=== PATIENT | female | born 1990 | race American Indian/Alaskan Native ===

== ENCOUNTER 2016-07-31 09:50 | Outpatient (CLI) | payer MEDICAID ==
[2016-07-31] MEDS ORDERED: LACTATED RINGERS 500 ML IV ONE (10:03)
[2016-07-31 11:01] VITALS: BP 106/68
[2016-07-31 11:58] LABS: Mucus,Urine 2+ /HPF
[2016-07-31 12:35] LABS: Bilirubin,Urine NEG (Negative); Blood,Urine NEG (Negative); Ketones,Urine NEG (Negative); Leukocyte Esterase,Urine TR (Negative); Nitrite,Urine NEG (Negative); Protein,Urine <15 mg/dL mg/dL (Negative); Urobilinogen,Urine < 2.0 mg/dL (<2.0)
== END 2016-07-31 14:10 | disposition home or self-care (01) ==
LOC: TRG 09:50
PROVIDERS: ATTEND Obstetrics & Gynecology
DX: O77.9 Labor and delivery complicated by fetal stress, unspecified (principal); O47.9 False labor, unspecified; Z3A.00 Weeks of gestation of pregnancy not specified
CPT/HCPCS: 59025; 81001

== ENCOUNTER 2016-09-07 09:38 | Emergency (ER) | payer MEDICAID ==
[2016-09-07 10:49] LABS: Basophils % (Auto) 0.6 % (0.0-1.8); Eosinophils % (Auto) 3.9 % (0.0-4.3); Hematocrit 34.6 % (30.3-42.9); Hemoglobin 11.6 gm/dl (10.1-14.3); Mean Corpuscular HGB Conc 34 % (30-34); Mean Corpuscular Hemoglobin 29 pg (28-32); Mean Corpuscular Volume 85 fl (79-97); Platelet Count 161 K/mm3 (140-440); Red Blood Count 4.05 M/mm3 (3.65-5.03); Red Cell Distribution Width 14.2 % (13.2-15.2); White Blood Count 8.6 K/mm3 (4.5-11.0)
[2016-09-07 11:04] LABS: Anion Gap 13 mmol/L; Blood Urea Nitrogen 4 mg/dL (7-17); Calcium 8.6 mg/dL (8.4-10.2); Carbon Dioxide 24 mmol/L (22-30); Chloride 100.8 mmol/L (98-107); Glucose 66 mg/dL (65-100); Potassium 3.7 mmol/L (3.6-5.0); Sodium 134 mmol/L (137-145)
[2016-09-07 11:07] LABS: Alanine Aminotransferase 8 units/L (7-56); Albumin 3.2 g/dL (3.9-5); Albumin/Globulin Ratio 1.2 %; Alkaline Phosphatase 107 units/L (35-129); Bilirubin,Total 0.2 mg/dL (0.1-1.2); Total Protein 5.9 g/dL (6.3-8.2)
[2016-09-07 11:18] VITALS: BP 95/62
--- NOTE | 2016-09-07 11:25 | Emergency Department Report ---
ED General Adult HPI - General Chief complaint: Dizziness Stated complaint: DIZZINESS Time Seen by Provider: 09/07/16 10:32 Source: patient, EMS Mode of arrival: Stretcher Limitations: No Limitations - History of Present Illness Initial comments: She states that she was driving a golf cart at work. She began to feel weak. She exited the golf cart and felt as if she was going to pass out. However, she did not fall. She had no dyspnea chest pain or abdominal pain. She has felt normal movement. She states that she has had no problems with this . Patient is 4. She's had 3 voluntary interruptions of . Her liveborn child was 5 years ago who was delivered at emergency C section for distress and failure to progress. -: Gradual Improves with: none Worsens with: none Associated Symptoms: denies other symptoms - Related Data Allergies Allergy/AdvReac Type Severity Reaction Status Date / Time Latex, Natural Rubber Allergy Unknown Verified 03/16/16 17:32 ED Review of Systems ROS: Stated complaint: DIZZINESS Other details as noted in HPI Constitutional: denies: chills, fever Eyes: denies: eye pain, eye discharge, vision change ENT: denies: ear pain, throat pain Respiratory: denies: cough, shortness of breath, wheezing Cardiovascular: denies: chest pain, palpitations Endocrine: no symptoms reported Gastrointestinal: denies: abdominal pain, nausea, diarrhea Genitourinary: denies: urgency, dysuria, discharge Musculoskeletal: denies: back pain, joint swelling, arthralgia Skin: denies: rash, lesions Neurological: denies: headache, weakness, paresthesias Psychiatric: denies: anxiety, depression Hematological/Lymphatic: denies: easy bleeding, easy bruising ED Past Medical Hx - Past Medical History Hx Hypertension: No Hx Diabetes: No Hx Deep Vein Thrombosis: No Hx Renal Disease: No Hx Sickle Cell Disease: No Hx Seizures: No Hx Asthma: Yes Hx HIV: No Additional medical history: 35 weeks - Surgical History Past Surgical History?: Yes Additional Surgical History: - Social History Smoking Status: Never Smoker Substance Use Type: None ED Physical Exam - General Limitations: No Limitations General appearance: alert, in no apparent distress - Head Head exam: Present: atraumatic, normocephalic - Eye Eye exam: Present: normal appearance. Absent: scleral icterus - ENT ENT exam: Present: mucous membranes moist - Neck Neck exam: Present: normal inspection - Respiratory Respiratory exam: Present: normal lung sounds bilaterally. Absent: respiratory distress - Cardiovascular Cardiovascular Exam: Present: regular rate, normal rhythm. Absent: systolic murmur, diastolic murmur, rubs, gallop - GI/Abdominal GI/Abdominal exam: Present: soft, normal bowel sounds, organomegaly (is consistent with dates heart tones were in the 130s.). Absent: distended, tenderness, guarding, rebound - Extremities Exam Extremities exam: Present: normal inspection - Back Exam Back exam: Present: normal inspection - Neurological Exam Neurological exam: Present: alert, oriented X3, CN II-XII intact. Absent: motor sensory deficit - Psychiatric Psychiatric exam: Present: normal affect, normal mood - Skin Skin exam: Present: warm, dry, intact, normal color. Absent: rash ED Course Vital Signs 09/07/16 09:41 Temperature 98.4 F Pulse Rate 72 Respiratory 20 Rate Blood Pressure 118/78 O2 Sat by Pulse 99 Oximetry ED Medical Decision Making - Lab Data Result diagrams: 09/07/16 10:38 09/07/16 10:38 Laboratory Results - last 24 hr 09/07/16 09/07/16 09/07/16 10:38 10:38 10:38 WBC 8.6 RBC 4.05 Hgb 11.6 Hct 34.6 MCV 85 MCH 29 MCHC 34 RDW 14.2 Plt Count 161 Lymph % (Auto) 21.0 [place] % (Auto) 7.9 H Eos % (Auto) 3.9 Baso % (Auto) 0.6 Lymph # 1.8 [place] # 0.7 Eos # 0.3 Baso # 0.1 Seg Neutrophils % 66.6 Seg Neutrophils # 5.7 Sodium 134 L Potassium 3.7 Chloride 100.8 Carbon Dioxide 24 Anion Gap 13 BUN 4 L Creatinine 0.4 L Estimated GFR > 60 BUN/Creatinine Ratio 10.00 Glucose 66 Calcium 8.6 Total Bilirubin 0.2 AST 12 ALT 8 Alkaline Phosphatase 107 Total Protein 5.9 L Albumin 3.2 L Albumin/Globulin Ratio 1.2 - EKG Data -: EKG Interpreted by Me EKG shows normal: sinus rhythm, axis, intervals, QRS complexes, ST-T waves Rate: normal - EKG Data Interpretation: normal EKG Critical care attestation.: If time is entered above; I have spent that time in minutes in the direct care of this critically ill patient, excluding procedure time. ED Disposition Clinical Impression: Pre-syncope, 35 weeks gestation of Disposition: DISCHARGED TO HOME OR SELFCARE Is pt being admited?: No Does the pt Need Aspirin: No Condition: Stable Instructions: Syncope (ED), (ED) Additional Instructions: Go to L&D now to complete your evaluation. Referrals: PRIMARY CARE, [Primary Care Provider] - 3-5 Days Time of Disposition: 11:38
[2016-09-07 13:05] LABS: Urine Drugs of Abuse Note Disclamer
[2016-09-07 13:14] LABS: Bacteria,Urine 1+ /HPF (Negative); Bilirubin,Urine NEG (Negative); Blood,Urine NEG (Negative); Ketones,Urine NEG (Negative); Leukocyte Esterase,Urine NEG (Negative); Nitrite,Urine NEG (Negative); Protein,Urine <15 mg/dL mg/dL (Negative); Urobilinogen,Urine < 2.0 mg/dL (<2.0)
== END 2016-09-07 12:18 | disposition home or self-care (01) ==
LOC: ED 09:38
DX: O26.893 Other specified pregnancy related conditions, third trimester (principal); R55 Syncope and collapse; J45.909 Unspecified asthma, uncomplicated; Z3A.35 35 weeks gestation of pregnancy; Z91.040 Latex allergy status
CPT/HCPCS: 36415; 80048; 80074; 80307; 81001; 85025; 93005; 93010; 99284

== ENCOUNTER 2016-09-07 12:44 | Outpatient (CLI) | payer MEDICAID ==
[2016-09-07] MEDS ORDERED: LACTATED RINGERS 500 ML IV ONE (13:00)
[2016-09-07 13:07] VITALS: BP 115/70
== END 2016-09-07 14:46 | disposition home or self-care (01) ==
LOC: TRG 12:44
PROVIDERS: ATTEND Obstetrics & Gynecology
DX: O77.9 Labor and delivery complicated by fetal stress, unspecified (principal); O47.9 False labor, unspecified; Z3A.00 Weeks of gestation of pregnancy not specified
CPT/HCPCS: 59025; 96360; J7120; 36415; 80048; 80074; 80307; 81001; 85025; 93005; 93010; 99284